=== PATIENT | female | born 1940 | race African-American/Black ===

== ENCOUNTER 2017-11-12 07:30 | Day surgery (SDC) | payer MEDICARE ==
[2017-11-09 08:33] VITALS: BMI 24.7
[2017-11-12 08:30] LABS: #Eosinphils 0.2 thou/uL (0.0-0.7); #Lymphocytes 1.7 thou/uL (1.20-3.40); #Monocytes 0.5 thou/uL (0.11-0.59); #Neutrophils 4.3 thou/uL (1.40-6.50); %Basophils 0.7 % (0.0-1.0); %Eosinophils 2.4 % (0.0-10.0); %Lymphocytes 25.6 % (21.0-51.0); %Monocytes 7.7 % (0.0-10.0); %Neutrophils 63.6 % (42.0-75.0); Hemoglobin 12.6 g/dL (12.0-16.0); Mean Corpuscular HGB CONC 30.7 g/dL (32.0-36.0); Mean Corpuscular Volume 78.2 fl (81.0-99.0); Mean Platelet Volume 9.8 fL (7.4-10.4); Platelet Count 195 thou/uL (130-400); RBC Distribution Width 13.4 % (11.5-14.5); Red Blood Cell (RBC) Count 5.24 mill/uL (4.20-5.40); White Blood Cell (WBC) Count 6.7 thou/uL (4.8-10.8)
[2017-11-12 08:49] LABS: Anion Gap 13 mmol/L (10-20); BUN (Urea Nitrogen) 30 mg/dL (9.8-20.1); Calc. Creatinine Clearance 48 mL/min (70-130); Calcium 9.8 mg/dL (7.8-10.44); Carbon Dioxide 24 mmol/L (23-31); Chloride 105 mmol/L (98-107); Estimated GFR-MDRD 57; Glucose 191 mg/dL (83-110); Potassium 3.7 mmol/L (3.5-5.1); Sodium 138 mmol/L (136-145)
[2017-11-12 09:24] LABS: INR-International Normal Ratio 1.1; PTT 35.9 SEC (22.9-36.1); Prothrombin Time 14.4 SEC (12.0-14.7)
[2017-11-12] MEDS ORDERED: Gentamicin 80 MG/2 ML VIAL ONE (10:32)
[2017-11-12] MEDS ORDERED: CEFAZOLIN/Water 2 GM/20 ML SYRINGE ONE (10:32)
[2017-11-12] MEDS ORDERED: CEFAZOLIN 1 GM VIAL ONE (10:32)
[2017-11-12] MEDS ORDERED: Diprivan 20 ML ONE (11:16)
[2017-11-12] MEDS ORDERED: Lidocaine 1% PF 5 ML VIAL ONE (13:35)
--- NOTE | 2017-11-12 15:04 | RAD ---
CHEST 1 VIEW: HISTORY: Pacemaker placement. COMPARISON: None. FINDINGS: A three lead cardiac device is present. No pneumothorax. Mild pulmonary venous congestion. Cardiac silhouette is upper limits of normal. IMPRESSION: 1. No pneumothorax. 2. Mild pulmonary venous congestion. 3. Blunting left lateral costophrenic sulcus may be sequelae of small effusion. POS: [facility]
== END 2017-11-12 16:20 | disposition home or self-care (01) ==
LOC: CCL 07:30
PROVIDERS: ATTEND Internal Medicine Cardiovascular Disease
PROC: 0JH609Z Insertion of Cardiac Resynchronization Defibrillator Pulse Generator into Chest Subcutaneous Tissue and Fascia, Open Approach (ICD-10-PCS; principal; 2017-11-12)
PROC: 02HN0KZ Insertion of Defibrillator Lead into Pericardium, Open Approach (ICD-10-PCS; 2017-11-12)
DX: I50.22 Chronic systolic (congestive) heart failure (principal); I42.8 Other cardiomyopathies; I44.7 Left bundle-branch block, unspecified; Z79.899 Other long term (current) drug therapy
CPT/HCPCS: 33208; 33225; 36005; 71045; 75820; 80048; 85025; 85610; 85730; C1882; C1898 ×2; C1900; J0690; J1580; J2704; J3490

== ENCOUNTER 2017-12-14 13:33 | Inpatient (IN) | payer MEDICARE ==
[2017-12-14 14:25] LABS: #Eosinphils 0.1 thou/uL (0.0-0.7); #Lymphocytes 1.3 thou/uL (1.20-3.40); #Monocytes 0.4 thou/uL (0.11-0.59); #Neutrophils 6.3 thou/uL (1.40-6.50); %Basophils 0.3 % (0.0-1.0); %Eosinophils 1.4 % (0.0-10.0); %Lymphocytes 15.5 % (21.0-51.0); %Monocytes 4.6 % (0.0-10.0); %Neutrophils 78.2 % (42.0-75.0); Hemoglobin 11.6 g/dL (12.0-16.0); Mean Corpuscular HGB CONC 30.6 g/dL (32.0-36.0); Mean Corpuscular Volume 78.5 fl (81.0-99.0); Mean Platelet Volume 10.4 fL (7.4-10.4); Platelet Count 171 thou/uL (130-400); RBC Distribution Width 13.5 % (11.5-14.5); Red Blood Cell (RBC) Count 4.84 mill/uL (4.20-5.40); White Blood Cell (WBC) Count 8.1 thou/uL (4.8-10.8)
[2017-12-14 14:48] LABS: ALT (SGPT) 14 U/L (8-55); AST (SGOT) 16 U/L (5-34); Alkaline Phosphatase 82 U/L (40-150); Anion Gap 10 mmol/L (10-20); BUN (Urea Nitrogen) 27 mg/dL (9.8-20.1); Bilirubin, Total 0.5 mg/dL (0.2-1.2); Calc. Creatinine Clearance 0 mL/min (70-130); Calcium 9.8 mg/dL (7.8-10.44); Carbon Dioxide 27 mmol/L (23-31); Chloride 104 mmol/L (98-107); Estimated GFR-MDRD 64; Glucose 208 mg/dL (83-110); Sodium 137 mmol/L (136-145)
[2017-12-14] MEDS ORDERED: hydrALAZINE 20 MG/ML VIAL ONE (15:25)
[2017-12-14 15:37] LABS: INR-International Normal Ratio 1.1
[2017-12-14 15:38] LABS: PTT 34.6 SEC (22.9-36.1)
[2017-12-14 15:44] LABS: CKMB 2.9 ng/mL (0-6.6); Troponin I Less than 0.010 ng/mL (< 0.028)
--- NOTE | 2017-12-14 16:10 | CT ---
NONCONTRAST HEAD CT: 12/14/17 HISTORY: Headache. Sudden onset of left jaw pain. COMPARISON: None. TECHNIQUE: Noncontrast head CT is performed from skull base to skull vertex. No parenchymal hemorrhage. No extra-axial hematoma. No midline shift. Basilar cisterns are patent. White matter hypodensities are presumed to be due to chronic small vesse l ischemic change. Cortical mcguire-white matter differentiation is preserved. The ventricles and sulci are patent and symmetric. The calvarium is intact. Adequate aeration of the sinuses and mastoid air cells. Cavernous carotid atherosclerosis is noted. Remote lacunar infarct in the left subinsular white matter. IMPRESSION: No acute intracranial process. POS: [facility]
--- NOTE | 2017-12-14 16:14 | CT ---
CT ARTERIOGRAM CHEST WITH IV CONTRAST AND 3D MIP IMAGING CT ARTERIOGRAM ABDOMEN WITH IV CONTRAST AND 3D MIP IMAGING 12/14/17 HISTORY: Chest pain. Abdomen pain. Back pain. FINDINGS: There is good contrast opacification of the pulmonary arteries and the aorta. Normal branching of the great vessels from the aortic arch is apparent. There is calcification within the arterial structure s. Mild atelectasis is present at the lung bases. No pneumothorax or pleural fluid. Cysts arise from the cortex of the left kidney. A large complex predominantly cystic mass centered at the pancreatic body and tail contains a dystrop hic calcification. On today's exam, it measures 6.9 cm length x 5.9 cm width x 5.6 cm depth. This is slightly smaller than on the previous exam. Nonspecific lymph nodes are scattered about the retroper itoneum. Abdominal aorta is of normal caliber. No fluid is apparent within the retroperitoneum. Mesen teric arteries are widely patent. IMPRESSION: 1. No CT evidence of pulmonary embolus or acute aortic abnormality. 2. Atherosclerosis. 3. Complex cystic mass of the pancreas is slightly smaller than on the previous exam. POS: [facility]
--- NOTE | 2017-12-14 16:18 | RAD ---
CHEST 1 VIEW: Date: 12/14/17 HISTORY: Chest pain. Headache. COMPARISON: 11/12/17. FINDINGS: Cardiac silhouette is magnified and enlarged. Pulmonary vasculature is more engorged than on the prev ious study. Mediastinum is midline with aortic calcification. There is a multilead left subclavian ca rdiac electronic device. No lobar consolidation or evidence of pneumothorax. rolling machine tender leads ov erlie the chest. IMPRESSION: 1. Mild pulmonary vascular congestion. 2. Atherosclerosis. POS: [facility]
[2017-12-14] MEDS ORDERED: ISOVUE-370 76%-LOCM 1 ML ONE (17:21)
[2017-12-14] MEDS ORDERED: Acetaminophen 500 MG TAB ONE (17:49)
[2017-12-14 17:56] LABS: Bilirubin Negative (Negative); Blood, Urine Negative (Negative); Clarity CLEAR (Clear); Glucose, Urine (Dipstick) Negative (Negative); Leukocyte Negative (Negative); Nitrite Negative (Negative); Protein, Urine (Dipstick) Negative (Neg-Trace); Specific Gravity, Urine 1.024 (1.002-1.036); Urobilinogen 0.2 mg/dL (0.2-1.0); pH, Urine 7.5 (5.0-9.0)
[2017-12-14] MEDS ORDERED: niCARdipine 20MG In NaCl 20 MG/200 ML BAG ONE (18:15)
[2017-12-14 19:48] LABS: Troponin I 0.014 ng/mL (< 0.028)
[2017-12-14] MEDS ORDERED: Ondansetron ODT 4 MG TAB SL PRN (21:21)
[2017-12-14] MEDS ORDERED: Ondansetron HCl/PF 4 MG/2 ML Vial IVP PRN (21:21)
[2017-12-14] MEDS ORDERED: niCARdipine HCl 25 MG in Sodium Chloride 0.9% 250 ML 240 ML IVPB SCH (21:30)
[2017-12-14] MEDS ORDERED: HumaLOG 300 UNITS/3 ML VIAL SC PRN (22:28)
[2017-12-14 22:34] LABS: Troponin I 0.016 ng/mL (< 0.028)
[2017-12-14] MEDS ORDERED: Dextrose 50% Abboject 50 ML SYRINGE IVP PRN (22:38)
[2017-12-14] MEDS ORDERED: Dextrose 5% in Water 1,000 ML IV PRN (22:38)
[2017-12-14 22:52] VITALS: BMI 25.7
[2017-12-14] MEDS ORDERED: Brimonidine Tartrate 0.2% Ophth Soln 5 ml Bottle EA EYE SCH (23:15)
[2017-12-14] MEDS ORDERED: Carvedilol 25 MG TAB PO SCH (23:15)
[2017-12-14] MEDS ORDERED: hydrALAZINE 25 MG TAB PO SCH (23:15)
[2017-12-14] MEDS: HumaLOG 300 UNITS/3 ML VIAL SC PRN (23:42)
--- NOTE | 2017-12-15 00:23 | HP ---
DATE OF ADMISSION: 12/14/2017 CHIEF COMPLAINT: Headache and elevated blood pressure. HISTORY OF PRESENT ILLNESS: This is a 77-year-old female patient with a history of hypertension, hyperlipidemia, cardiomyopathy with decreased ejection fraction, diet-controlled type 2 diabetes, glaucoma, who presented to the emergency department today with increasing headache and increasing blood pressure over the past week. She was recently seen in my office on 12/04/2017 with a blood pressure under good control with a reading of 124/80. She states that over the past week, she has had increased blood pressure and headache. She denies chest pain, shortness of breath, or palpitations. Denies any falls or head trauma. Due to her blood pressure, not getting better at home, so she presented to the emergency department, she was found to have blood pressure as high as 215/100 in the ED, she failed to respond to oral medications in the ED and then was started on a Cardene drip, which slowly brought her blood pressure down to 130s to 140s. Her heart rate initially was elevated in the 90s to 100s and is now back down to 80. Her headache had improved from 9-10/10, down to 1/ 10 as well. She is now being admitted for further evaluation and treatment. In the ED, she did not have elevated troponins, so her CT of the brain was normal. She had no other etiology of her high blood pressure at this time. PAST MEDICAL HISTORY: Hypertension; hyperlipidemia; fibrocystic breast disease ; type 2 diabetes, diet controlled; glaucoma; cardiomyopathy with decreased ejection fraction; history of a pancreatic mass, which was found to be a benign cyst. PAST SURGICAL HISTORY: Breast biopsy in 1977, removal of breast cyst in 2007; pacemaker placement in 10/2017; EGD with biopsy and pancreatic biopsy in 2016; colonoscopy with biopsy in 2016. SOCIAL HISTORY: She is . No smoking, no alcohol. FAMILY HISTORY: Father with a stroke. Siblings with coronary artery disease, type 2 diabetes, hypertension, heart disease. ALLERGIES: No known drug allergies. MEDICATIONS: Iron daily, vitamin D3 of 2000 units daily, hydralazine 50 mg t.i.d., losartan/hydrochlorothiazide 100/25 mg 1 daily, aspirin 81 mg daily, simvastatin 20 mg daily, brimonidine eyedrops, timolol eyedrops, latanoprost eyedrops, Norvasc 10 mg daily, carvedilol 6.25 mg b.i.d., Protonix p.r.n., loratadine 10 mg p.r.n. REVIEW OF SYSTEMS: As per the history of present illness. General: She denies any recent fevers, chills, or recent illness. HEENT: She admits to some blurred vision, admit her blood pressure was high. No ringing in her ears , no hearing loss. Cardiac: She denies chest pain, shortness of breath, or palpitations. Pulmonary: Denies cough or hemoptysis. Gastrointestinal: She did have some nausea and vomiting at home prior to the emergency room visit. No diarrhea. Genitourinary: No history of urinary tract infections recently. No dysuria or hematuria. Neurologic: No weakness, seizures, or syncope. PHYSICAL EXAMINATION: VITAL SIGNS: She is afebrile, heart rate 83, respirations 23, blood pressure 162/64, pulse ox 98% on room air. GENERAL: She is awake and alert, in no acute distress. Speech is clear. Mucosa is moist. NECK: Supple. No JVD, adenopathy, or bruits. HEART: Regular rate and rhythm with 2/6 systolic ejection murmur. LUNGS: Clear. ABDOMEN: Soft. No masses. No hepatosplenomegaly. EXTREMITIES: No clubbing, cyanosis, or edema. 2+ peripheral pulses bilaterally. NEUROLOGIC: Cranial nerves II through XII are grossly intact. Speech is clear and fluent. Strength is 5/5 bilaterally in upper and lower extremities. Sensation is intact bilaterally. LABORATORY AND DIAGNOSTIC DATA: White blood cell count 8.1, hemoglobin and hematocrit 11.6 and 38, platelets 171. PT and PTT were normal. Sodium 137, potassium 4.0, chloride 104, CO2 of 27, BUN and creatinine 27 and 1.01, serum glucose elevated at 208. AST and ALT are normal. CPK was normal. Troponin I negative x2. BNP was normal at 84.4. Brain CT was negative. Chest x-ray showed no active disease. CT dissection scan was negative. ASSESSMENT AND PLAN: 1. This is a 77-year-old female patient with known cardiomyopathy, status post pacemaker placement, known hypertension, hyperlipidemia, now with hypertensive emergency. I agree with admission to the ICU while she was on Cardene drip. Hopefully, we will switch her to oral meds and transfer to the floor tomorrow. Agree with continuing rule out myocardial infarction protocol. 2. Hypertension. We will continue medicines. We will increase her carvedilol. May add oral calcium-channel andre as well. 3. Coronary artery disease is stable. She had a recent echocardiogram by Dr. Brunson, electrophysiology. Consider cardiology evaluation if she has not improved tomorrow. 4. Hyperlipidemia. We will continue statin therapy. 5. Known type 2 diabetes with hyperglycemia. We will check Accu-Cheks and insulin sliding scale. MTDD
[2017-12-15 01:26] LABS: Troponin I 0.016 ng/mL (< 0.028)
[2017-12-15] MEDS: HumaLOG 300 UNITS/3 ML VIAL SC PRN ×3 (06:23→17:42)
[2017-12-15] MEDS: Brimonidine Tartrate 0.2% Ophth Soln 5 ml Bottle EA EYE SCH ×2 (08:08→21:26)
[2017-12-15] MEDS: hydrALAZINE 25 MG TAB PO SCH ×2 (08:09→21:26)
[2017-12-15] MEDS: Ferrous Sulfate 325 MG TAB PO SCH (08:09)
[2017-12-15] MEDS: Losartan/Hydrochlorothiazide 100 mg/25 mg Tablet PO SCH (08:09)
[2017-12-15] MEDS: Carvedilol 25 MG TAB PO SCH ×2 (08:10→16:17)
[2017-12-15] MEDS: Aspirin 81 mg Enteric Coated Tablet PO SCH (08:10)
[2017-12-15] MEDS: Amlodipine 5 MG TAB PO SCH (08:10)
[2017-12-15] MEDS: Ascorbic Acid 500 mg Chewable Tablet PO SCH (08:10)
[2017-12-15] MEDS: Atorvastatin Calcium 10 MG TAB PO SCH (08:10)
[2017-12-15] MEDS ORDERED: Aspirin 325 MG TAB PO SCH (09:00)
[2017-12-15] MEDS: Latanoprost 0.005% Ophth Soln 2.5 ml Bottle EA EYE SCH (09:05)
--- NOTE | 2017-12-15 10:39 | ULT ---
RENAL SONOGRAM: HISTORY: Hypertension. FINDINGS: The right kidney is 10.6 cm. No hydronephrosis. Echogenicity was reported by the sonographic techno logist. No stones were apparent, however, on recent CT scan. The left kidney is 10.1 cm and contains cysts measuring up to 3.8 cm. Urinary bladder is incompletel y distended. IMPRESSION: 1. No evidence of urinary tract obstruction. 2. Left renal cysts. POS: [facility]
--- NOTE | 2017-12-15 12:10 | PRG ---
DATE OF SERVICE: 12/15/2017 SUBJECTIVE: The patient is feeling much better, denies headache, denies chest pain, shortness of nilda ath. Her blood pressure decreased last night, she was able to come off of the Cardene drip about 2:0 0 a.m. She feels much better now that her blood pressure is better controlled. Denies any chest arianna n, shortness of breath, denies nausea and vomiting. She has not been out of bed as of yet, but is an xious to eat and start moving. OBJECTIVE: VITAL SIGNS: Temperature 98.2, pulse of 64, respirations 20, blood pressure 165/68-165/78. GENERAL: She is awake and alert. Speech is clear and fluent. No word finding difficulties. NECK: Supple, no JVD, adenopathy or bruits. HEART: Regular rate and rhythm. LUNGS: Clear. No edema. EXTREMITIES: With full range of motion. NEUROLOGIC: No weakness, numbness, or tingling. LABORATORY DATA: Troponin I's have been negative x4. Accu-Chek of 184 this morning. ASSESSMENT AND PLAN: 1. This is a 77-year-old female patient with a history of coronary artery disease, hypertension, hyp erlipidemia, admitted with hypertensive emergency. She improved with IV Cardizem. She is now been a ble to switch to oral medications and is feeling much better now. We will transfer her to telemetry for close monitoring. 2. Hypertension. I will continue oral medications. Consider adding her back on nifedipine as neede d. 3. Coronary artery disease is stable. 4. Type 2 diabetes. We will continue insulin sliding scale. 5. We will check renal ultrasound to rule out renal artery stenosis causing the sudden hypertensive emergency and possible home in the next day or two.
[2017-12-15] MEDS: cloNIDine 0.1 MG TAB PO PRN (17:43)
[2017-12-15] MEDS ORDERED: Lorazepam 2 MG/ML VIAL SLOW IVP PRN (20:24)
[2017-12-16] MEDS: cloNIDine 0.1 MG TAB PO PRN (05:12)
[2017-12-16 05:37] LABS: #Eosinphils 0.3 thou/uL (0.0-0.7); #Monocytes 0.6 thou/uL (0.11-0.59); #Neutrophils 5.2 thou/uL (1.40-6.50); %Basophils 0.2 % (0.0-1.0); %Eosinophils 3.3 % (0.0-10.0); %Lymphocytes 24.7 % (21.0-51.0); %Monocytes 7.6 % (0.0-10.0); %Neutrophils 64.2 % (42.0-75.0); Mean Corpuscular HGB CONC 31.4 g/dL (32.0-36.0); Mean Corpuscular Hemoglobin 24.3 pg (27.0-31.0); Mean Corpuscular Volume 77.4 fl (81.0-99.0); Mean Platelet Volume 10.5 fL (7.4-10.4); Platelet Count 178 thou/uL (130-400); RBC Distribution Width 13.5 % (11.5-14.5); Red Blood Cell (RBC) Count 4.96 mill/uL (4.20-5.40); White Blood Cell (WBC) Count 8.1 thou/uL (4.8-10.8)
[2017-12-16 05:54] LABS: Anion Gap 12 mmol/L (10-20); BUN (Urea Nitrogen) 24 mg/dL (9.8-20.1); Calc. Creatinine Clearance 54 mL/min (70-130); Calcium 9.5 mg/dL (7.8-10.44); Carbon Dioxide 27 mmol/L (23-31); Chloride 103 mmol/L (98-107); Estimated GFR-MDRD 63; Glucose 196 mg/dL (83-110); Potassium 3.6 mmol/L (3.5-5.1); Sodium 138 mmol/L (136-145)
[2017-12-16] MEDS: Losartan/Hydrochlorothiazide 100 mg/25 mg Tablet PO SCH (09:25)
[2017-12-16] MEDS: Carvedilol 25 MG TAB PO SCH (09:26)
[2017-12-16] MEDS: hydrALAZINE 25 MG TAB PO SCH (09:26)
[2017-12-16] MEDS: Atorvastatin Calcium 10 MG TAB PO SCH (09:26)
[2017-12-16] MEDS: Aspirin 81 mg Enteric Coated Tablet PO SCH (09:26)
[2017-12-16] MEDS: Ferrous Sulfate 325 MG TAB PO SCH (09:26)
[2017-12-16] MEDS: Amlodipine 5 MG TAB PO SCH (09:27)
[2017-12-16] MEDS: Brimonidine Tartrate 0.2% Ophth Soln 5 ml Bottle EA EYE SCH (09:27)
[2017-12-16] MEDS: Latanoprost 0.005% Ophth Soln 2.5 ml Bottle EA EYE SCH (09:27)
[2017-12-16] MEDS: Ascorbic Acid 500 mg Chewable Tablet PO SCH (09:27)
--- NOTE | 2017-12-16 11:41 | DIS ---
DATE OF ADMISSION: 12/14/2017 DATE OF DISCHARGE: 12/16/2017 ADMISSION DIAGNOSIS: Hypertensive emergency. DISCHARGE DIAGNOSIS: Hypertension, improved. OTHER DIAGNOSES: Coronary artery disease, type 2 diabetes, hypertension, hyperlipidemia and early de mentia. CONSULTATIONS: Dr. Crockett for Critical Care. PROCEDURES PERFORMED: IV Cardene drip, ICU monitoring and telemetry monitoring. HOSPITAL COURSE: This is a 77-year-old female patient with a history of hypertension, hyperlipidemia , cardiomyopathy with decreased ejection fraction and diet controlled diabetes who presented to the [facility] with slowly increasing blood pressure at home and increasing headache. She was s een in my office on 12/04/2017 with normal blood pressure. Following that, her blood pressures hugo nued to rise. In the Emergency Department, she was found to have a blood pressure over 215/100. She failed to respond to oral medications in the EGD and was started on a Cardene drip, which controlled her blood pressure. She was in the ICU over that first night. She was able to be weaned off of the Cardene drip and has been managed on oral medications since that time. She eventually ruled out for an NV. Her CT brain, CT dissection scan and renal ultrasound have all been stable. No etiology for her rise in blood pressure. She is back to her baseline. Her blood pressure remained stable and re abhay for discharge home. DISCHARGE PHYSICAL EXAMINATION: VITAL SIGNS: Temperature 98.0, pulse 72, respirations 18, blood pressure 145/65 and pulse ox is 94% on room air. GENERAL: She is awake and alert. Speech is clear. She is moving in the room without difficulty. NECK: Supple. No bruits. HEART: Regular rate and rhythm. LUNGS: Clear. ABDOMEN: Soft. EXTREMITIES: With no edema. 2+ peripheral pulses. She moves all extremities. LABORATORY AND IMAGING DATA: Again, she ruled out for an NV with negative cardiac enzymes. White bl ood cell count 8.1 thousand, hemoglobin and hematocrit 12 and 38.4, platelets of 178. Sodium 138, po tassium 3.6, chloride 103, CO2 of 27, BUN and creatinine 24 and 1.03 with a GFR of 63, serum glucose of 196. Again, reviewed renal ultrasound, CT dissection protocol, brain CT and chest x-ray have all been stable. DISCHARGE MEDICATIONS: Include Norvasc 5 mg daily, aspirin 81 mg daily, Lipitor 10 mg daily, Alphaga n eyedrops, Coreg 25 mg b.i.d., vitamin D3, iron sulfate daily, Hyzaar 100/25 daily, Apresoline 50 mg b.i.d. and Protonix 40 mg daily. FOLLOWUP INSTRUCTIONS: The patient to follow up in my office this next week to monitor her blood pre ssure.
[2017-12-16 19:05] VITALS: BP 163/61; TEMP 97.9
--- NOTE | 2017-12-22 17:46 | EKG ---
Test Reason : CP Blood Pressure : / mmHG Vent. Rate : 067 BPM Atrial Rate : 067 BPM P-R Int : 124 ms QRS Dur : 128 ms QT Int : 462 ms P-R-T Axes : 047 218 068 degrees QTc Int : 488 ms Atrial-sensed ventricular-paced rhythm Abnormal ECG Confirmed by ROMI TYLER, FRANTZ ([id number]), editor greeting card MONA JAUREGUI ([id number]) on 12/22/2017 5:45:52 PM Referred By: Confirmed By:FRANTZ LLANOS MD
== END 2017-12-16 12:28 | disposition home or self-care (01) | DRG 305 ==
LOC: ERS 13:33 → CCU 18:05 → 2NO 21:50
PROVIDERS: ADMIT Family Medicine; ATTEND Family Medicine
DX: I16.1 Hypertensive emergency (principal); E11.65 Type 2 diabetes mellitus with hyperglycemia; I42.9 Cardiomyopathy, unspecified; I25.10 Atherosclerotic heart disease of native coronary artery without angina pectoris; I10 Essential (primary) hypertension; E78.5 Hyperlipidemia, unspecified; F03.90 Unspecified dementia, unspecified severity, without behavioral disturbance, psychotic disturbance, mood disturbance, and anxiety; H40.9 Unspecified glaucoma; Z95.0 Presence of cardiac pacemaker
CPT/HCPCS: 36415; 36416; 70450; 71045; 71275; 76770; 80048; 80053; 81003; 82550; 82553; 83690; 83880; 84484; 85025; 85610; 85730; 93005; 96361; 96365; 96366; 96375; J0360; J1610

== ENCOUNTER 2018-12-04 17:53 | Inpatient (IN) | payer MEDICARE ==
[2018-12-04 18:49] LABS: #Eosinphils 0.1 thou/uL (0.0-0.7); #Lymphocytes 2.1 thou/uL (1.20-3.40); #Monocytes 0.7 thou/uL (0.11-0.59); #Neutrophils 5.7 thou/uL (1.40-6.50); %Basophils 0.3 % (0.0-1.0); %Eosinophils 1.6 % (0.0-10.0); %Lymphocytes 24.6 % (21.0-51.0); %Monocytes 7.6 % (0.0-10.0); Hemoglobin 11.8 g/dL (12.0-16.0); Mean Corpuscular HGB CONC 31.1 g/dL (32.0-36.0); Mean Corpuscular Hemoglobin 23.9 pg (27.0-31.0); Mean Corpuscular Volume 77.1 fL (78.0-98.0); Mean Platelet Volume 9.8 fL (7.4-10.4); Platelet Count 216 thou/uL (130-400); RBC Distribution Width 14.5 % (11.5-14.5); Red Blood Cell (RBC) Count 4.93 mill/uL (4.20-5.40); White Blood Cell (WBC) Count 8.6 thou/uL (4.8-10.8)
--- NOTE | 2018-12-04 18:51 | RAD ---
AP VIEW CHEST: 12/04/18 HISTORY: Chest pain. AP view chest is obtained on 12/04/18. Comparison made to previous exam from 12/14/17. AP view chest demonstrates a dual lead intracardiac pacing device. Mild pulmonary vascular congestion seen. Calcification of the aorta is seen. No evidence of effusions, pneumonia, or pneumothorax seen. IMPRESSION: Unremarkable AP view chest. POS: [facility]
[2018-12-04 19:11] LABS: ALT (SGPT) 16 U/L (8-55); AST (SGOT) 26 U/L (5-34); Albumin 3.8 g/dL (3.4-4.8); Alkaline Phosphatase 81 U/L (40-150); Anion Gap 12 mmol/L (10-20); BUN (Urea Nitrogen) 21 mg/dL (9.8-20.1); Bilirubin, Total 0.3 mg/dL (0.2-1.2); Calc. Creatinine Clearance 0 mL/min (70-130); Calcium 9.8 mg/dL (7.8-10.44); Carbon Dioxide 24 mmol/L (23-31); Chloride 109 mmol/L (98-107); Estimated GFR-MDRD 48; Globulin 3.3 g/dL (2.4-3.5); Glucose 126 mg/dL (83-110); Potassium 4.1 mmol/L (3.5-5.1); Protein, Total 7.1 g/dL (6.0-8.3); Sodium 141 mmol/L (136-145)
[2018-12-04 22:21] LABS: Troponin I 0.018 ng/mL (< 0.028)
[2018-12-04] MEDS ORDERED: Acetaminophen 500 MG TAB ONE (22:28)
[2018-12-05 01:49] LABS: Troponin I Less than 0.010 ng/mL (< 0.028)
[2018-12-05 04:10] VITALS: BMI 25.0
[2018-12-05] MEDS ORDERED: hydrALAZINE 20 MG/ML VIAL SLOW IVP PRN (07:48)
[2018-12-05] MEDS ORDERED: Nitroglycerin 0.4 MG TAB (25 Tab Bottle) SL PRN (07:51)
[2018-12-05] MEDS: Losartan 25 MG TAB PO SCH (08:20)
[2018-12-05] MEDS: Carvedilol 25 MG TAB PO SCH ×2 (08:21→17:16)
[2018-12-05] MEDS: hydrALAZINE 25 MG TAB PO SCH ×2 (08:22→20:24)
[2018-12-05] MEDS: Aspirin 81 mg Enteric Coated Tablet PO SCH (08:22)
[2018-12-05] MEDS: Ferrous Sulfate 325 MG TAB PO SCH (08:22)
[2018-12-05] MEDS: Latanoprost 0.005% Ophth Soln 2.5 ml Bottle EA EYE SCH (08:22)
[2018-12-05] MEDS: Ascorbic Acid 500 mg Chewable Tablet PO SCH (08:22)
[2018-12-05] MEDS ORDERED: Prevnar 13-Val Conj/PF 0.5 ML SYRINGE IM ONE (09:00)
[2018-12-05] MEDS ORDERED: Amlodipine 5 MG TAB PO SCH (09:00)
[2018-12-05] MEDS: Brimonidine Tartrate 0.2% Ophth Soln 5 ml Bottle EA EYE SCH ×2 (09:46→21:49)
[2018-12-05] MEDS ORDERED: Simvastatin 20 MG TAB PO SCH (21:00)
[2018-12-05] MEDS ORDERED: Atorvastatin Calcium 10 MG TAB PO SCH (21:00)
--- NOTE | 2018-12-06 04:34 | HP ---
CHIEF COMPLAINT: Chest pain. HISTORY OF PRESENT ILLNESS: This is a 78-year-old female patient with a history of hypertension, hyperlipidemia, dementia, type 2 diabetes, arrhythmia status post pacemaker placement, who presented to the emergency department with onset of chest pain. With discussion with the son, she has also been more confused. Her has been hospitalized as she has been home with family. She has been more resistant for treatment. She has not been taking her medicines for the past few days. She also locked her family and refusing home health nursing to come by. The family brought her to the emergency department since she has not been compliant with the treatment and has not been taking her medicines. In the emergency department, she was found to have a severely elevated blood pressure as well as onset of her chest pain. She is now being admitted for further evaluation and treatment. PAST MEDICAL HISTORY: Hypertension, hyperlipidemia, type 2 diabetes, glaucoma, history of cardiomyopathy with decreased ejection fraction, history of benign pancreatic mass. PAST SURGICAL HISTORY: Breast biopsy in 1977, removal of breast cyst in 2007, pacemaker placement in October 2017, EGD with biopsy, pancreatic biopsy in 2016, colonoscopy with biopsy in 2016. SOCIAL HISTORY: She is . No smoking. No alcohol. FAMILY HISTORY: Father with stroke. Siblings with coronary artery disease, type 2 diabetes, hypertension and heart disease. ALLERGIES: NO KNOWN DRUG ALLERGIES. MEDICATIONS: Include: 1. Norvasc 5 mg daily. 2. Vitamin C once daily. 3. Aspirin 81 mg daily. 4. Lipitor 10 mg daily. 5. Carvedilol 25 mg b.i.d. 6. Ferrous sulfate 325 daily. 7. Hydralazine 50 mg b.i.d. 8. Cozaar 100 mg daily. 9. Protonix 40 mg daily. 10. Xalatan 1 drop daily to each eye. 11. Alphagan 1 drop each eye b.i.d. REVIEW OF SYSTEMS: As per the history of present illness. GENERAL: She denies any recent fevers or recent illness. HEENT: Denies headache, visual or hearing changes. CARDIAC: She complains of chest pain and chest wall tenderness on the left side over her pacemaker No shortness of breath. No palpitations. PULMONARY: Denies cough or hemoptysis. GI: She denies nausea, vomiting, abdominal pain, melena, or hematochezia. : No history of dysuria or hematuria. No recent urinary tract infections. NEUROLOGIC: No weakness, seizures or syncope. She has had memory loss. PHYSICAL EXAMINATION: VITAL SIGNS: Temperature 98.1, pulse of 76, respirations 18. Blood pressure on admission 196/92, down to 152/72. Pulse ox is 99% on room air. GENERAL: Her speech is clear. She is awake, alert, and oriented to person and place only. HEENT: Mucosa is moist. NECK: Supple. No JVD, adenopathy, or bruits. CHEST: Left upper chest wall tenderness over pacemaker HEART: Regular rate and rhythm with 2/6 systolic ejection murmur. LUNGS: Clear bilaterally. ABDOMEN: Soft. EXTREMITIES: With no edema. 2+ peripheral pulses bilaterally. LABORATORY DATA: White blood cell count 8600, hemoglobin and hematocrit 11.8 and 38.0, platelets of 216. Sodium 141, potassium 4.1, chloride 109, CO2 of 24, BUN and creatinine 21 and 1.3 with a GFR 48. Serum glucose of 126. Troponin I 0.016, 0.018, and less than 0.01. Liver enzymes are normal. BNP 44. Chest x-ray showed no active disease. ASSESSMENT AND PLAN: This is a 78-year-old female patient with history of cardiomyopathy, hypertension, hyperlipidemia, now with onset of chest pain and hypertensive urgency. 1. Chest pain. Agree with rule out myocardial infarction protocol. We will consult Dr. Sher for evaluation. Seems like her pain is more musculoskeletal in origin as it is reproducible with tenderness around the pacemaker. 2. Hypertensive urgency. We will restart her medications and monitor closely. We will continue p.r.n. IV hydralazine for breakthrough hypertension. 3. Hyperlipidemia. We will continue her medications. 4. Type 2 diabetes. We will continue insulin sliding scale. 5. Dementia. The patient is no longer safe to be home, especially home alone with her becoming more ill. I will consult Case Management for placement issues as far as her son is in agreement with halfway facility placement. We will have renal case managerbiofuels product development manager for her placement issues. Job ID: [id number] [facility]
[2018-12-06] MEDS ORDERED: Lorazepam 2 MG/ML VIAL SLOW IVP SCH (04:45)
--- NOTE | 2018-12-06 06:47 | CON ---
DATE OF CONSULTATION: 12/05/2018 HISTORY OF PRESENT ILLNESS: This is a 78-year-old female with a past medical history of Alzheimer dementia, coronary artery disease, hypertension, and congestive heart failure with reduced ejection fraction, who presents to the ER via EMS for chest pain. She has dementia at baseline and only alert to herself which does make the history difficult to obtain. In the ER, she complained of chest pain, that she said was sudden, at rest, without radiation, without nausea or vomiting, without shortness of breath, without diaphoresis. She was subsequently admitted for this chest pain as well as for hypertensive urgency. When I saw her this afternoon, she reported that she does have chest pain. She cannot tell me how frequent, but did say that it is sharp and left sided. She again told me that it was while at rest without radiation, and when she takes her medications it goes away. Of note, she was prescribed nitroglycerin. She also said that at times her heart races really fast, but she could not say how often or when it occurs. She also endorsed some lightheadedness but could not say how often or when it occurs. Of note, after review of her cardiology records, she is a patient of Dr. Sher, she had a cardiac cath in 2014 after going to his clinic and found to have a left frontal branch block. The results of that cath showed an ejection fraction of 45%, and 25% of occlusion of LAD, and 25% occlusion of the circumflex artery. She also had an echo at that time, which showed an EF of 45% to 50%, mildly impaired LV systolic function, LV mildly dilated, moderate mitral regurgitation, and mild tricuspid regurgitation. Of note, in the ER for her elevated blood pressure. she got labetalol 10 mg x2 and she also got Tylenol. PAST MEDICAL HISTORY: 1. Diabetes mellitus, type 2. 2. Hypertension. 3. Alzheimer dementia. 4. Coronary artery disease. 5. Heart failure with reduced ejection fraction. 6. Hypertension. 7. Hyperlipidemia. 8. Vitamin B deficiency. PAST SURGICAL HISTORY: Biventricular pacemaker placed on 11/12/2017. ALLERGIES: NONE. FAMILY HISTORY: Parents have hypertension. Sister has coronary artery disease with stent placement. Second sister has heart failure. SOCIAL HISTORY: She used to smoke half pack per day. She quit 25 years ago. MEDICATIONS: 1. Amlodipine 5 mg p.o. q.a.m. as scheduled. 2. Aspirin 81 mg p.o. q.a.m. 3. Atorvastatin 10 mg p.o. at bedtime as scheduled. 4. Carvedilol 25 mg p.o. b.i.d. with meal as scheduled. 5. Vitamin D 2000 units p.o. q.a.m. as scheduled. 6. Vitamin C 500 mg p.o. q.a.m. as scheduled. 7. Ferrous sulfate 325 mg p.o. BID 8. Hydralazine 50 mg p.o. b.i.d. scheduled. 9. Latanoprost one drop each eye daily scheduled. 10. Losartan 100 mg daily scheduled. 11. Nitroglycerin 0.4 mg sublingual p.r.n. chest pain. 12. Pantoprazole 40 mg p.o. q.a.m. REVIEW OF SYSTEMS: GENERAL: Denied weight loss or fevers. CARDIOVASCULAR: Denied diaphoresis, syncope, or orthopnea. Endorsed palpitation and chest pain, but not currently, but having occurred over the last 2 weeks. RESPIRATORY: Denied shortness of breath or dyspnea. GI: Denied nausea, vomiting, or diarrhea. NEUROLOGIC: Endorsed lightheadedness, headache occasionally. DERMATOLOGIC: Denied rashes or skin lesions. PHYSICAL EXAMINATION: VITAL SIGNS: Blood pressure 157/70, however initial blood pressures in the ER were 200s/100; heart rate of 78, respiratory rate 18, saturating 100% on room air, and temperature 97.6. GENERAL: Alert and oriented to self. She thought she was in [place] and thought the year was fall 2017, otherwise well appearing in no acute distress. CARDIOVASCULAR: Regular rate and rhythm. No murmurs, rubs, or gallops. Normal S1 and S2. RESPIRATORY: Mild crackles heard in the right lung base, improved after several breaths. Otherwise clear to auscultation. No wheezing. ABDOMEN: Abdomen is soft, nontender to palpation. Normal bowel sounds. MUSCULOSKELETAL: No edema. Pulses, 2+ bilaterally. DIAGNOSTIC DATA: EKG, atrial-sensed ventricularly paced EKG, no signs of acute ischemia. LABORATORY DATA: Troponin 0.016, 0.010, 0.010. BMP showed a BUN of 21 and creatinine 1.3. Glucose of 126. Her BNP was 44. Her CBC showed hemoglobin of 11.8. Chest x-ray showed pulmonary vascular congestion. Cath in 2015 showed EF 45%, 25% occlusion of the LAD and the circumflex artery. Echo in 2015 showed EF 45% to 50%, LV mildly dilated, moderate mitral regurgitation, mild tricuspid regurgitation. ASSESSMENT AND PLAN: This is a 78-year-old female with past medical history of dementia; coronary artery disease, not requiring stent placement; hypertension; congestive heart failure; diabetes; admitted for atypical chest pain and hypertensive urgency. # Atypical chest pain. -The patient has known coronary artery disease, and her last cath was in 2014 showing 25% occlusion of the left anterior descending artery and the circumflex. It is unlikely that her coronary artery disease has advanced too significantly over the past 3 years, and given this atypical presentation of her chest pain with her negative troponin and no acute ischemia on EKG, we would not recommend a stress test inpatient. HAS-BLED score of 4 based on her age and her risk factors; however, due to very atypical presentation in her history and she has negative troponin and again her EKG did not show any acute signs of ischemia and also given her other comorbidities, we would not recommend an inpatient stress test at this time. # Hypertensive urgency. Given the patient is currently on losartan 100 mg daily, amlodipine 5 mg daily, carvedilol 25 mg b.i.d., her most recent blood pressure is lowered from admission. It was 157/70. We would recommend adding spironolactone to her regimen. # Heart failure with reduced ejection fraction. Her last echo was 2014, showed an ejection fraction of 45% to 50%. We would recommend repeating an echo as outpatient and also would recommend adding back spironolactone to her regimen. #Hyperlipidemia. We would recommend getting a lipid panel. On assesseing her risk, the patient would likely need a high-intensity statin. We would recommend increasing atorvastatin to 40 mg based on her arteriosclerotic heart disease risk. Dr. Abreu has seen the patient and agrees with my assessment and plan. Job ID: [id number] [facility]
--- NOTE | 2018-12-06 08:27 | PRG ---
DATE OF SERVICE: 12/06/2018 SUBJECTIVE: The patient states that her chest pain has improved. She is ambulating in the valerio. Denies shortness of breath and states that she is having a good appetite. She continues to be confused and states that her has had several meetings this morning. She is easily redirected, so that the fact that she is in the hospital. Denies pain. Denies nausea and vomiting. OBJECTIVE: VITAL SIGNS: Temperature 97.7, pulse is 74, respirations 20, blood pressure 122/62, pulse ox 96% on room air. GENERAL: She is awake and alert. No acute distress. Speech is clear. NECK: Supple. HEART: Regular rate and rhythm. Chest wall continues to be tender. LUNGS: Clear bilaterally. No wheeze, rales, or rhonchi. EXTREMITIES: With no edema. LABORATORY DATA: Reviewed. She ruled out for an SD. Accu-Cheks 165, 210, 132, 140. Chest x-ray shows no active disease. ASSESSMENT AND PLAN: This is a 78-year-old female patient with a history of coronary artery disease, type 2 diabetes, hypertension, hyperlipidemia, admitted with chest pain and hypertensive urgency. 1. The patient ruled out for myocardial infarction with normal cardiac enzymes. Cardiology evaluated the patient, so no need for further workup on her chest pain since it is atypical and likely more musculoskeletal due to her pacemaker. 2. Type 2 diabetes. We will continue her current treatment. 3. Hypertensive urgency is improved. We will continue her current therapy and monitor closely. 4. Dementia. The patient is not safe to be home alone. 5. Disposition: Case management continue to work on placement for her, especially since her is hospitalized and is not able to go home from the hospital. Job ID: [id number]
--- NOTE | 2018-12-06 08:40 | CON ---
DATE OF CONSULTATION: 12/05/2018 ADDENDUM: INDICATION FOR CONSULTATION: A 78-year-old female with a history of coronary artery disease, which has been nonocclusive by cardiac catheterization in 2015 with 25% right coronary stenosis, 25% left circumflex stenosis with decreasing left ventricular systolic function. She underwent a biventricular ICD in 2017. She has been living at home with her , who is now I believe has metastatic cancer, who is now likely in the hospital in the last several days. She has not been taking her medications. She is significantly confused. She has Alzheimer's. She does not want people taking care of her. She has not taken medicines appropriately, but has been having intermittent chest pain according to the records. She says she did have some pain last week. When you talk to her, she is very unreliable historian. At this time, she is very comfortable. She is actually visiting her 's room and sitting in the chair, talking to him very comfortably when I found her in order to do the history and physical. Otherwise, she has no complaints. She denied any shortness of breath. She had no lower extremity edema and she appears to be euvolemic. She did have an ejection fraction of 40% to 45% in 2017 and 45% to 50% also in the 2017 and a 50% ejection fraction in 2014. She had history of left bundle branch block prior to undergoing the biventricular AICD. She also has a history of hypertension, hyperlipidemia. She has been on cholesterol medications as well as medications for her blood pressure. She offers up no complaints at this time. Her cardiac enzymes are negative for myocardial infarction. EKG did not show any evidence of ischemia. Her creatinine was 1.3. Her blood pressure was elevated, certainly when she arrives in the 180s to 190 systolically. She has now had some improvement is 157/70. Otherwise, she appears to be stable at this time without any other complaints. PAST MEDICAL HISTORY: Please refer to the notes dictated by the resident. SOCIAL HISTORY: Please refer to the notes dictated by the resident. FAMILY HISTORY: Please refer to the notes dictated by the resident. REVIEW OF SYSTEMS: Please refer to the notes dictated by the resident. MEDICATIONS: Please refer to the notes dictated by the resident. ALLERGIES: PLEASE REFER TO THE NOTES DICTATED BY THE RESIDENT. I HAVE SEEN THE PATIENT ALSO AND WE HAVE DISCUSSED THE PATIENT AND I WOULD AGREE WITH THE ASSESSMENT AND PLAN. WE HAVE ALSO DISCUSSED THE PLAN OF ACTION IN THIS PATIENT. WE WILL OBTAIN ANOTHER ECHOCARDIOGRAM IF THIS HAS NOT BEEN RECENTLY PERFORMED IN THE OFFICE. THERE HAS BEEN SOME QUESTION ABOUT STRESS TESTING, BUT I WOULD NOT PROCEED WITH STRESS TESTING IN THIS LADY WHO HAS OBVIOUS ALZHEIMER'S DISEASE AND HAD A CARDIAC CATHETERIZATION JUST A COUPLE OF YEARS AGO WITH MILD CORONARY ARTERY DISEASE. WOULD NOT EXPECT THIS TO PROGRESS THAT QUICKLY. WE WILL CONTINUE TO FOLLOW HER. PHYSICAL EXAMINATION: GENERAL: Reveals an elderly, demented female. VITAL SIGNS: Blood pressure 157/70, heart rates in the 70s. She is afebrile. Respiratory rate is 20, O2 saturation is 100%, and also she appears to have normal sinus rhythm. HEENT: Shows the head to be normocephalic and atraumatic. Carotid pulses are present. I did not hear any bruits. Her chest was clear to auscultation. There were no rales, rhonchi, or wheezing. CARDIOVASCULAR: Reveals a regular rate and rhythm. There were no gross murmurs, heaves, thrills, bruits or rubs. ABDOMEN: Soft and nontender. Positive bowel sounds are present. EXTREMITIES: No clubbing, cyanosis, or edema. Pedal pulses are somewhat difficult to palpate, but the patient was sitting in the chair for most of the examination. NEUROLOGIC: She has obvious dementia. She is only oriented to herself. She really did not think she was even in the hospital, is uncertain as to why she is here when you question her again, but she seems to be comfortable as long as she is within the room with her . IMPRESSION: 1. History of coronary artery disease, which appears to be actually stable at this time. 2. History of cardiomyopathy and bundle-branch block, for which she underwent automatic implantable cardioverter-defibrillator implant. This appears to be also stable, does not know when it was last interrogated, but we can certainly ask them to interrogate her device. Does not appear to be having any abnormalities or any abnormal functions or problems at this time associated with the defibrillator. 3. Hypercholesterolemia. She will continue with her medications. 4. Type 2 diabetes. She is in the need to adjust her medications according to the friend, who was present and apparently she does not take her medications. Overall, looking at situation for her and for herself, most likely she would benefit from being having placement in the senior living facility, so that she can be watched more carefully and medications can be given on a routine basis from a cardiac standpoint, otherwise she appears to be stable at this time. Job ID: [id number]
[2018-12-06] MEDS ORDERED: Atorvastatin Calcium 10 MG TAB PO SCH (08:43)
[2018-12-06] MEDS ORDERED: Spironolactone 25 MG TAB PO SCH (08:45)
--- NOTE | 2018-12-06 09:00 | EKG ---
Test Reason : Blood Pressure : / mmHG Vent. Rate : 074 BPM Atrial Rate : 074 BPM P-R Int : 148 ms QRS Dur : 126 ms QT Int : 446 ms P-R-T Axes : 062 202 059 degrees QTc Int : 495 ms Electronic ventricular pacemaker , likely biventricular When compared with ECG of 04-DEC-2018 18:02, (Unconfirmed) Vent. rate has decreased BY [address] Staci CORNELIUS ([id number]) on 12/06/2018 8:59:37 AM [facility] Confirmed By:DR. Staci CORNELIUS
--- NOTE | 2018-12-06 09:05 | PDOC.CTH ---
Cardiology Progress Note - Subjective The pt seen and examined. No overnight events. No cardiac complaints. - Objective Vital Signs Temp Pulse Resp BP Pulse Ox 12/06/18 08:00 98.3 F 80 18 170/76 H 97 12/06/18 03:50 96 12/06/18 00:00 20 Weight 155 lb 8 oz 12/05/18 12/06/18 12/07/18 06:59 06:59 06:59 Intake Total 300 1230 Output Total 1300 600 Balance -1000 630 - Physical Examination General/Neuro: other: (confused) Neck: carotid US brisk Lungs: CTA Heart: RRR Abdomen: soft Extremities: other: (No edema) - Telemetry Telemetry Rhythm: SR - Labs Result Diagrams: 12/04/18 18:38 12/04/18 18:38 Troponin/CKMB Troponin I Less than 0.010 ng/mL (< 0.028) 12/05/18 00:58 - Assessment/Plan 1. Mild CAD - stable with Coreg 6.25mg BID, Lipitor 40mg qd, and ASA 81mg qd 2. CMY with BiV AICD placement - On BBlocker, but not LUCILA/ARB 2/2 AGUILA 3. HTN - change Norvasc to Nifedipine 90mg qd; cont. to monitort 4. Hyperlipidemia - on Statin 5. DM type 2 - managed by PCP 6. Alzheimer's disease - MAR reviewed Pt. seen and eval. by me. She is still very confused due to alzheimers. The cardiac status is stable.I will sign off. she should follow up in the office in 1-[address] Sher. Review of Systems - Review of Systems Constitutional: reports: no symptoms reported EENTM: reports: no symptoms reported Respiratory: reports: no symptoms reported Cardiac (ROS): reports: no symptoms reported ABD/GI: reports: no symptoms reported : reports: no symptoms reported Musculoskeletal: reports: no symptoms reported
[2018-12-06] MEDS: NIFEdipine XL 90 MG TAB PO SCH (09:48)
[2018-12-06] MEDS: Losartan 25 MG TAB PO SCH (09:48)
[2018-12-06] MEDS: Carvedilol 25 MG TAB PO SCH ×2 (09:49→17:42)
[2018-12-06] MEDS: Ferrous Sulfate 325 MG TAB PO SCH (09:49)
[2018-12-06] MEDS: hydrALAZINE 25 MG TAB PO SCH ×2 (09:49→20:44)
[2018-12-06] MEDS: Aspirin 81 mg Enteric Coated Tablet PO SCH (09:50)
[2018-12-06] MEDS: Latanoprost 0.005% Ophth Soln 2.5 ml Bottle EA EYE SCH (09:51)
[2018-12-06] MEDS: Ascorbic Acid 500 mg Chewable Tablet PO SCH (09:51)
[2018-12-06] MEDS: Brimonidine Tartrate 0.2% Ophth Soln 5 ml Bottle EA EYE SCH ×2 (09:51→20:56)
[2018-12-07] MEDS: Ascorbic Acid 500 mg Chewable Tablet PO SCH (08:19)
[2018-12-07] MEDS: hydrALAZINE 25 MG TAB PO SCH ×2 (08:19→20:27)
[2018-12-07] MEDS: Ferrous Sulfate 325 MG TAB PO SCH (08:19)
[2018-12-07] MEDS: Aspirin 81 mg Enteric Coated Tablet PO SCH (08:20)
[2018-12-07] MEDS: Carvedilol 25 MG TAB PO SCH ×2 (08:20→17:12)
[2018-12-07] MEDS: Latanoprost 0.005% Ophth Soln 2.5 ml Bottle EA EYE SCH (08:21)
[2018-12-07] MEDS: Brimonidine Tartrate 0.2% Ophth Soln 5 ml Bottle EA EYE SCH ×2 (08:21→20:28)
[2018-12-07] MEDS: NIFEdipine XL 90 MG TAB PO SCH (09:10)
--- NOTE | 2018-12-07 12:30 | PRG ---
DATE OF SERVICE: 12/07/2018 PRIMARY CARE PHYSICIAN: Desean Moore, SUBJECTIVE: Today, the patient has no complaint, wanting to go home. Her evaluation for chest pain has come up negative. OBJECTIVE: VITAL SIGNS: Currently, she is afebrile, pulse in the 70s, BP 125/64, saturating 95% on room air. GENERAL: She is awake, alert, but confused, demented, very pleasant. LUNGS: Clear to auscultation bilaterally. HEART: S1, S2 with no rubs, murmurs, or gallops. ABDOMEN: Soft, nontender, nondistended. EXTREMITIES: Show good palpable pulses in all 4 extremities. NEUROLOGIC: There is no weakness or sensory deficits. Cognition is impaired. Memory is impaired. 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 Per notes from Dr. Moore, the patient is awaiting for help with assistance as her is admitted as well due to problems with his renal failure and his metastatic prostate cancer. LABORATORY DATA: She has no recent lab work other than a glucose of 245. ASSESSMENT: Chest pain, is ruled out, has dementia, and we are awaiting placement disposition from help with the family, evidently is on their way here to also aid with that. Job ID: [id number]
[2018-12-07] MEDS ORDERED: traZODone HCl 50 MG TAB PO SCH (20:00)
[2018-12-07] MEDS: Atorvastatin Calcium 40 MG TAB PO SCH (20:27)
[2018-12-08] MEDS: NIFEdipine XL 90 MG TAB PO SCH (08:43)
[2018-12-08] MEDS: Latanoprost 0.005% Ophth Soln 2.5 ml Bottle EA EYE SCH (08:45)
[2018-12-08] MEDS: hydrALAZINE 25 MG TAB PO SCH ×3 (08:46→22:56)
[2018-12-08] MEDS: Ascorbic Acid 500 mg Chewable Tablet PO SCH (08:46)
[2018-12-08] MEDS: Carvedilol 25 MG TAB PO SCH ×2 (08:47→16:19)
[2018-12-08] MEDS: Ferrous Sulfate 325 MG TAB PO SCH (08:47)
[2018-12-08] MEDS: Aspirin 81 mg Enteric Coated Tablet PO SCH (08:47)
[2018-12-08] MEDS: Brimonidine Tartrate 0.2% Ophth Soln 5 ml Bottle EA EYE SCH ×3 (08:51→22:56)
--- NOTE | 2018-12-08 14:13 | PRG ---
DATE OF SERVICE: 12/08/2018 SUBJECTIVE: Last night, Ms. Butt had an episode of wandering and agitation, and had to have some trazodone to calm her down, which it did. Otherwise today, she has been calm. OBJECTIVE: VITAL SIGNS: Stable. Afebrile. Exam is unchanged. LUNGS: Clear. HEART: S1, S2. ABDOMEN: Soft, nontender. NEUROLOGIC: She is still pleasantly confused, but she does not think she is confused. LABORATORY DATA: There are no labs. ASSESSMENT: Her is still in the ICU and so disposition for her is dependent on the disposition of him. Dr. Moore will be back to see him tomorrow. Job ID: [id number]
[2018-12-08] MEDS ORDERED: Acetaminophen 500 MG TAB PO PRN (17:17)
[2018-12-08] MEDS: Atorvastatin Calcium 40 MG TAB PO SCH ×2 (21:38→22:56)
[2018-12-09] MEDS: Brimonidine Tartrate 0.2% Ophth Soln 5 ml Bottle EA EYE SCH ×2 (08:55→20:22)
[2018-12-09] MEDS: Latanoprost 0.005% Ophth Soln 2.5 ml Bottle EA EYE SCH (08:55)
[2018-12-09] MEDS: Aspirin 81 mg Enteric Coated Tablet PO SCH (08:56)
[2018-12-09] MEDS: hydrALAZINE 25 MG TAB PO SCH ×2 (08:56→20:20)
[2018-12-09] MEDS: NIFEdipine XL 90 MG TAB PO SCH (08:56)
[2018-12-09] MEDS: Carvedilol 25 MG TAB PO SCH ×2 (08:57→17:35)
[2018-12-09] MEDS: Ascorbic Acid 500 mg Chewable Tablet PO SCH (08:57)
[2018-12-09] MEDS: Ferrous Sulfate 325 MG TAB PO SCH (09:04)
--- NOTE | 2018-12-09 13:35 | PRG ---
DATE OF SERVICE: 12/09/2018 SUBJECTIVE: The patient is essentially stable, had an uneventful evening. OBJECTIVE: VITAL SIGNS: BP is 150s/70s, pulse 93, saturating 92% on room air. Exam is essentially unchanged. LUNGS: Clear auscultation bilaterally. HEART: S1 and S2. NEUROLOGIC: Her confusion remains the same. It is unclear that she can go home by herself and her is still in ICU. The family is coming in from out of town to help with decisions on discharge. Dr. Moore will be back tomorrow. Hopefully, the family would be available for that point in time. Job ID: [id number]
--- NOTE | 2018-12-09 15:40 | PQF ---
DATE: 12-09-18 ATTN: DR. ANNIE OWUSU Please exercise your independent, professional judgment in responding to the clarification form. Clinical indicators are provided on the bottom of this form for your review Please check appropriate box(s): [ ] Encephalopathy: Type: [ ] Acute [ ] Subacute [ ] Chronic Etiology: [ ] Hypertensive [ ] Metabolic [ ] Toxic [ ] in the setting of underlying dementia [ ] Other (please specify) [ ] Transient Alteration of Awareness [ xx ] Other diagnosis __alzheimers dementia [ ] Unable to determine In addition, please specify: Present on Admission (POA): [ xx ] Yes [ ] No [ ] Unable to determine For continuity of documentation, please document condition throughout progress notes and discharge summary. Thank You. CLINICAL INDICATORS - SIGNS / SYMPTOMS / LABS H&P: HX DEMENTIA, WITH DISCUSSION WITH THE SON, SHE HAS ALSO BEEN MORE CONFUSED, SHE HAS BEEN MORE RESISTANT FOR TREATMENT, SHE HAS NOT BEEN TAKING HER MEDICINES FOR THE PAST FEW DAYS, SHE ALSO LOCKER HER FAMILY AND REFUSING HOME HEALTH NURSING TO COME BY. RISK FACTORS: H&P: HX OF HTN, HYPERLIPIDEMIA, DEMENTIA, DM 2, MORE CONFUSED, ALZHEIMER'S DEMENTIA, CAD, CHF TREATMENTS: H&P: DEMENTIA. CONSULT CASE MANAGEMENT MAR: OLYA This form is maintained as a part of the permanent medical record) 2014 [employer]. All Rights Reserved SANDRA [email or web address] Office: [phone] JOEL
[2018-12-09] MEDS ORDERED: traZODone HCl 50 MG TAB PO SCH (20:00)
[2018-12-09] MEDS: Atorvastatin Calcium 40 MG TAB PO SCH (20:20)
[2018-12-10] MEDS: Brimonidine Tartrate 0.2% Ophth Soln 5 ml Bottle EA EYE SCH (08:50)
[2018-12-10] MEDS: NIFEdipine XL 90 MG TAB PO SCH (08:51)
[2018-12-10] MEDS: Ascorbic Acid 500 mg Chewable Tablet PO SCH (08:51)
[2018-12-10] MEDS: Aspirin 81 mg Enteric Coated Tablet PO SCH (08:52)
[2018-12-10] MEDS: hydrALAZINE 25 MG TAB PO SCH ×2 (08:52→21:30)
[2018-12-10] MEDS: Carvedilol 25 MG TAB PO SCH ×2 (08:52→17:41)
[2018-12-10] MEDS: Ferrous Sulfate 325 MG TAB PO SCH (08:52)
[2018-12-10] MEDS: Latanoprost 0.005% Ophth Soln 2.5 ml Bottle EA EYE SCH (08:52)
--- NOTE | 2018-12-10 09:05 | PRG ---
DATE OF SERVICE: 12/10/2018 SUBJECTIVE: The patient denies complaints. She is ambulating in the hallway without difficulty. She states that she feels like the sitters are harassing her as she is concerned about her . OBJECTIVE: VITAL SIGNS: Temperature 97.9, pulse 78, respirations 16, blood pressure 146/72, pulse oximetry is 96% on room air. GENERAL: She is awake and alert, in no acute distress. Speech is clear. NECK: Supple. HEART: Regular rate and rhythm. LUNGS: Clear. EXTREMITIES: No edema. She is oriented to person only. LABORATORY DATA: Reviewed. Accu-Cheks of 165, 125, 200, 143, 197. ASSESSMENT/PLAN: This is a 78-year-old female patient with a history of dementia, admitted with chest pain. Rule out NH and hypertensive urgency. Her chest pain has resolved. Hypertension remained stable, now that she is monitored and ensuring she is taking her medications on a regular basis. 1. Hypertension. We will continue current therapy. 2. Type 2 diabetes, stable. 3. Dementia. We will continue medications. She continues to be unsafe to be at home alone. 4. Disposition: Case management working on her placement, continuing to discuss with other family about living options. Job ID: [id number]
[2018-12-10] MEDS ORDERED: traZODone HCl 50 MG TAB PO PRN (19:01)
[2018-12-10] MEDS: Atorvastatin Calcium 40 MG TAB PO SCH (21:30)
[2018-12-11] MEDS: Brimonidine Tartrate 0.2% Ophth Soln 5 ml Bottle EA EYE SCH ×3 (01:46→20:09)
--- NOTE | 2018-12-11 07:33 | PRG ---
DATE OF SERVICE: 12/11/2018 SUBJECTIVE: No change in her status. She continues to walk in the hallways with assistance. She has a sitter with her 24 hours. She continued to be confused, but at her baseline. OBJECTIVE: VITAL SIGNS: Temperature 97.6, pulse of 82, respirations 16 to 18, blood pressure 131/69, and pulse ox 98% on room air. GENERAL: She is awake and alert, in no acute distress. HEART: Regular rate and rhythm. LUNGS: Clear. EXTREMITIES: With no edema. LABORATORY DATA: No labs to review. ASSESSMENT AND PLAN: This is a 78-year-old female patient with history of dementia, hypertension, type 2 diabetes, who was admitted with chest pain and hypertensive urgency. She did rule out for a myocardial infarction. Her blood pressure is now stable. Awaiting placement. 1. Hypertension. We will continue to monitor and continue her oral medications. 2. Type 2 diabetes. We will check Accu-Cheks periodically. 3. Dementia, that is back at her baseline. She continues to be unsafe to be home alone. Her is sick in the hospital and unable to care for her. 4. Disposition: Case management continue to work on placement. Job ID: [id number]
[2018-12-11] MEDS: Ascorbic Acid 500 mg Chewable Tablet PO SCH (08:29)
[2018-12-11] MEDS: Ferrous Sulfate 325 MG TAB PO SCH (08:29)
[2018-12-11] MEDS: hydrALAZINE 25 MG TAB PO SCH ×3 (08:30→21:54)
[2018-12-11] MEDS: NIFEdipine XL 90 MG TAB PO SCH (08:30)
[2018-12-11] MEDS: Carvedilol 25 MG TAB PO SCH ×2 (08:30→16:26)
[2018-12-11] MEDS: Aspirin 81 mg Enteric Coated Tablet PO SCH (08:30)
[2018-12-11] MEDS: Latanoprost 0.005% Ophth Soln 2.5 ml Bottle EA EYE SCH (08:31)
[2018-12-11] MEDS: Atorvastatin Calcium 40 MG TAB PO SCH ×2 (20:08→21:55)
[2018-12-12 07:26] VITALS: BP 124/70; TEMP 97.5
[2018-12-12] MEDS: NIFEdipine XL 90 MG TAB PO SCH (07:56)
[2018-12-12] MEDS: Ascorbic Acid 500 mg Chewable Tablet PO SCH (07:57)
[2018-12-12] MEDS: Carvedilol 25 MG TAB PO SCH (07:57)
[2018-12-12] MEDS: Aspirin 81 mg Enteric Coated Tablet PO SCH (07:57)
[2018-12-12] MEDS: Brimonidine Tartrate 0.2% Ophth Soln 5 ml Bottle EA EYE SCH (07:57)
[2018-12-12] MEDS: Ferrous Sulfate 325 MG TAB PO SCH (07:57)
[2018-12-12] MEDS: hydrALAZINE 25 MG TAB PO SCH (07:57)
[2018-12-12] MEDS: Latanoprost 0.005% Ophth Soln 2.5 ml Bottle EA EYE SCH (07:58)
--- NOTE | 2018-12-12 08:53 | DIS ---
DATE OF ADMISSION: 12/05/2018 DATE OF DISCHARGE: 12/12/2018 ADMISSION DIAGNOSES: 1. Chest pain. 2. Hypertensive urgency. DISCHARGE DIAGNOSES: 1. Chest pain, ruled out, hypertensive, controlled. 2. Dementia. 3. Cardiomyopathy. 4. Coronary artery disease. 5. Hypertension. 6. Hyperlipidemia. HOSPITAL COURSE: This is a 78-year-old female patient with a history of dementia, hypertension, coronary artery disease, and type 2 diabetes, who presented to emergency department after stopping her medicines for about a week. She was becoming more and more confused since her went into the hospital and was not there to care for her. Family was attempting to care for her, but she was refusing their care, refusing any assistance, locked her family and home health nurses out of the house and stopped all of her medicines. In the emergency department, she came in for chest pain and her blood pressure over 200 systolic. She was admitted that time under rule out UT protocol. She eventually ruled out for an UT with negative cardiac enzymes, normal chest x-ray, normal EKG. BNP was only 44. She was seen by Cardiology for evaluation. They felt like her pain was more musculoskeletal around the area of her pacemaker. She was stable for discharge once her blood pressure became more under control with monitoring and taking her medicines on a regular basis. Placement became an issue since her was in the hospital and the family was unable to take care of her. She has a son in [place] and arrangements were made for her to be transferred there to snf. She remained stable throughout the hospitalization. Again, her blood pressure was under control and she had no further episodes of chest pain. DISCHARGE PHYSICAL EXAMINATION: VITAL SIGNS: Temperature 97.5, pulse of 81, respirations 19, blood pressure 124/70, and pulse ox is 96% on room air. GENERAL: She is awake and alert, in no acute distress. Speech is clear. NECK: Supple. HEART: Regular rate and rhythm. LUNGS: Clear. EXTREMITIES: With no edema. DISCHARGE LABS: Accu-Cheks of 115, 191, 208, and 171. Chest x-ray shows no active disease. EKG was normal sinus rhythm. DISCHARGE MEDICATIONS: Include: 1. Tylenol p.r.n. 2. Vitamin C 500 mg daily. 3. Aspirin 81 mg daily. 4. Lipitor 40 mg daily. 5. Alphagan 1 drop b.i.d. 6. Coreg 25 mg b.i.d. 7. Vitamin D3 of 2000 units daily. 8. Iron sulfate 325 daily. 9. Hydralazine 50 mg b.i.d. 10. Xalatan 1 drop daily. 11. Procardia XL 90 mg daily. 12. Protonix 40 mg daily. 13. Trazodone 50 mg at bedtime p.r.n. sleep. FOLLOWUP INSTRUCTIONS: The patient to follow up in my office after her snf stay and follow up with the physician at the snf. Job ID: [id number]
--- NOTE | 2018-12-16 10:51 | PQF ---
[employer] Typesetter Apprentice Crystal Reports Winform ViewerTANJATALLONDON ANNIE HAJI DO [id number] [facility] [id number] CLINICAL DOCUMENTATION CLARIFICATION FORM: POST DISCHARGE Addendum to original discharge summary date: ____ Late entry note date: __ Please exercise your independent, professional judgment in responding to the clarification form. Clinical indicators are provided on the bottom of this form for your review Please check appropriate box(s): HEART FAILURE: A. TYPE: [ ] Systolic / HFrEF [ ] Diastolic / HFpEF [ ] Combined Systolic / Diastolic B. ACUITY [ ] Acute [ ] Acute on Chronic [ ] Chronic [ ] Other diagnosis [ ] Unable to determine In addition, please specify: Present on Admission (POA): [ ] Yes [ ] No [ ] Unable to determine For continuity of documentation, please document condition throughout progress notes and discharge summary. Thank You. CLINICAL INDICATORS - SIGNS / SYMPTOMS / LABS HEART FAILURE WITH REDUCED EJECTION FRACTURE- CONSULT 12/05 BNP 44- D/S RISKS: Hypertension- H&P, D/S, CONSULTS AND ALL PROGRESS NOTES TREATMENTS: ON HOME CARVEDILOL- H&P [employer] Typesetter Apprentice [employer] Winform Viewer(This form is maintained as a part of the permanent medical record) 2014 [employer]. All Rights Reserved [email or web address] [phone] MTDD
== END 2018-12-12 10:56 | DRG 305 ==
LOC: ERS 17:53 → 2NO 21:20 → OBSVTOIN 12-05 07:51 → T4-A 12-06 11:40
PROVIDERS: ADMIT Family Medicine; ATTEND Family Medicine
DX: I16.0 Hypertensive urgency (principal); I42.9 Cardiomyopathy, unspecified; E78.5 Hyperlipidemia, unspecified; E11.9 Type 2 diabetes mellitus without complications; H40.9 Unspecified glaucoma; G30.9 Alzheimer's disease, unspecified; F02.80 Dementia in other diseases classified elsewhere, unspecified severity, without behavioral disturbance, psychotic disturbance, mood disturbance, and anxiety; I25.10 Atherosclerotic heart disease of native coronary artery without angina pectoris; I11.0 Hypertensive heart disease with heart failure; I50.9 Heart failure, unspecified; E53.9 Vitamin B deficiency, unspecified; Z79.82 Long term (current) use of aspirin; Z95.810 Presence of automatic (implantable) cardiac defibrillator; Z82.49 Family history of ischemic heart disease and other diseases of the circulatory system; Z83.3 Family history of diabetes mellitus; Z82.3 Family history of stroke
CPT/HCPCS: 36415; 36416; 71045; 80053; 83880; 84484; 85025; 93005; 93010; 96374; 96376; J2060; J3490

== ENCOUNTER 2019-10-23 19:52 | Observation (INO) | payer MEDICARE, MEDICAID ==
[2019-10-23] MEDS ORDERED: Nitroglycerin 2% Ointment 1 INCH/1 GM Packet ONE (20:08)
[2019-10-23] MEDS ORDERED: Morphine 4 MG/ML VIAL ONE (20:17)
--- NOTE | 2019-10-23 20:33 | RAD ---
PORTABLE UPRIGHT FRONTAL CHEST RADIOGRAPH: 10/23/19 COMPARISON: 12/04/18 HISTORY: Intermittent chest pain. FINDINGS: Stable multilead transvenous pacing device. No pneumothorax, pleural fluid, focal consolidation, or a lveolar edema. IMPRESSION: No acute findings. POS: COLTON
[2019-10-23 20:38] LABS: #Basophils 0.1 thou/uL (0.0-0.2); #Eosinphils 0.3 thou/uL (0.0-0.7); #Lymphocytes 2.6 thou/uL (1.20-3.40); #Monocytes 0.8 thou/uL (0.11-0.59); #Neutrophils 7.8 thou/uL (1.40-6.50); %Basophils 0.8 % (0.0-1.0); %Eosinophils 2.7 % (0.0-10.0); %Lymphocytes 22.3 % (21.0-51.0); %Monocytes 6.5 % (0.0-10.0); %Neutrophils 67.7 % (42.0-75.0); Hemoglobin 12.8 g/dL (12.0-16.0); Mean Corpuscular HGB CONC 33.6 g/dL (32.0-36.0); Mean Corpuscular Hemoglobin 26.1 pg (27.0-31.0); Mean Corpuscular Volume 77.6 fL (78.0-98.0); Mean Platelet Volume 9.4 fL (7.4-10.4); Platelet Count 199 thou/uL (130-400); RBC Distribution Width 13.4 % (11.5-14.5); Red Blood Cell (RBC) Count 4.89 mill/uL (4.20-5.40); White Blood Cell (WBC) Count 11.6 thou/uL (4.8-10.8)
[2019-10-23 20:57] LABS: ALT (SGPT) 22 U/L (8-55); AST (SGOT) 22 U/L (5-34); Albumin 4.3 g/dL (3.4-4.8); Alkaline Phosphatase 92 U/L (40-110); Anion Gap 16 mmol/L (10-20); BUN (Urea Nitrogen) 14 mg/dL (9.8-20.1); Bilirubin, Total 0.5 mg/dL (0.2-1.2); Calc. Creatinine Clearance 0 mL/min (70-130); Calcium 9.7 mg/dL (7.8-10.44); Carbon Dioxide 26 mmol/L (23-31); Chloride 103 mmol/L (98-107); Estimated GFR-MDRD 61; Globulin 3.1 g/dL (2.4-3.5); Glucose 135 mg/dL (83-110); Lipase 78 U/L (8-78); Magnesium 1.8 mg/dL (1.6-2.6); Potassium 3.6 mmol/L (3.5-5.1); Protein, Total 7.4 g/dL (6.0-8.3); Sodium 141 mmol/L (136-145)
--- NOTE | 2019-10-23 22:30 | CT ---
CT ANGIOGRAM THORAX WITH IV CONTRAST AND 3D RECONSTRUCTIONS: 10/23/19 HISTORY: Chest pain with exertion. COMPARISON: CTA chest on 12/14/17. FINDINGS: No filling defects are seen in the pulmonary arteries to suggest a pulmonary embolus. Vascular calcifications are again seen in the coronary arteries as well as involving the thoracic aor ta. The thorax aorta remains normal in caliber without evidence of an aortic dissection. A triple lead left subclavian cardiac pacemaking device is again noted in place. The thyroid gland is heterogeneous in appearance with suggestion of nodules in each lobe of the thyro id gland. However, this is not well evaluated on this exam. Nonemergent thyroid ultrasound is recomme nded. There is dependent atelectasis bilaterally. No pulmonary nodule, mass, or pleural effusion is seen in the lungs bilaterally. There is no evidence of mediastinal or hilar lymphadenopathy. There is partial visualization of a hypodense cystic lesion superior pole left kidney stable when com pared to the prior study likely representing a cyst. Degenerative changes are again seen in the thoracic spine. There has been no interval change from the prior CT angiogram of the chest. Prior study included CTA of the abdomen which demonstrated a comple x cystic mass in the pancreas. IMPRESSION: 1. No CT evidence of a pulmonary embolus. 2. Heterogeneity of the thyroid gland with suggestion of nodules in each lobe of the thyroid gla nd. Nonemergent thyroid ultrasound is recommended. POS: NEREYDA
[2019-10-23 23:52] LABS: Troponin I 0.024 ng/mL (< 0.028)
[2019-10-24 00:10] VITALS: BMI 22.1
[2019-10-24] MEDS ORDERED: Aspirin Chewable 81 MG TAB PO SCH (00:30)
[2019-10-24 02:59] LABS: Troponin I Less than 0.010 ng/mL (< 0.028)
[2019-10-24 07:01] LABS: #Basophils 0.1 thou/uL (0.0-0.2); #Eosinphils 0.3 thou/uL (0.0-0.7); #Monocytes 0.6 thou/uL (0.11-0.59); #Neutrophils 7.8 thou/uL (1.40-6.50); %Basophils 0.5 % (0.0-1.0); %Lymphocytes 18.5 % (21.0-51.0); %Monocytes 5.5 % (0.0-10.0); %Neutrophils 72.4 % (42.0-75.0); Hemoglobin 11.9 g/dL (12.0-16.0); Mean Corpuscular HGB CONC 31.9 g/dL (32.0-36.0); Mean Corpuscular Hemoglobin 24.6 pg (27.0-31.0); Mean Platelet Volume 9.3 fL (7.4-10.4); Platelet Count 205 thou/uL (130-400); RBC Distribution Width 13.5 % (11.5-14.5); Red Blood Cell (RBC) Count 4.83 mill/uL (4.20-5.40); White Blood Cell (WBC) Count 10.8 thou/uL (4.8-10.8)
[2019-10-24] MEDS ORDERED: Calcium Carbonate 500 MG ChewTAB PO PRN (07:57)
[2019-10-24] MEDS ORDERED: Nitroglycerin 0.4 MG TAB (25 Tab Bottle) PO PRN (07:57)
[2019-10-24] MEDS ORDERED: Acetaminophen 325 MG TAB PO PRN (07:57)
[2019-10-24] MEDS ORDERED: Senokot S 8.6-50 MG TAB PO PRN (07:57)
[2019-10-24] MEDS ORDERED: traZODone HCl 50 MG TAB PO PRN (08:01)
[2019-10-24] MEDS ORDERED: cloNIDine 0.1 MG TAB PO PRN (08:02)
[2019-10-24] MEDS ORDERED: Brimonidine Tartrate 0.2% Ophth Soln 5 ml Bottle EA EYE SCH (09:00)
[2019-10-24] MEDS ORDERED: NIFEdipine XL 90 MG TAB PO SCH (09:00)
[2019-10-24] MEDS ORDERED: Aspirin 81 mg Enteric Coated Tablet PO SCH (09:00)
[2019-10-24] MEDS ORDERED: Donepezil HCl 10 MG TAB PO SCH (09:00)
[2019-10-24] MEDS ORDERED: hydrALAZINE 25 MG TAB PO SCH (09:00)
[2019-10-24] MEDS ORDERED: Latanoprost 0.005% Ophth Soln 2.5 ml Bottle EA EYE SCH (09:00)
[2019-10-24] MEDS ORDERED: ADENOSINE 60 MG/20 ML VIAL ONE (11:49)
--- NOTE | 2019-10-24 13:36 | NM ---
EXAM: Nuclear medicine cardiac perfusion examination with ejection fraction HISTORY: Chest pain TECHNIQUE: Rest images: 9.8 mCi technetium 99m sestamibi Stress images: 30.2 mCi of technetium 9M sestamibi; Adenosine COMPARISON: None FINDINGS: Tomographic images: No fixed or reversible perfusion defects. Gated images: Normal wall motion and ejection fraction of 63%. EDV: 80 mL LHR: 0.3 TID: 1.2 IMPRESSION: No evidence of ischemia
[2019-10-24 15:37] VITALS: BP 151/67
[2019-10-24 15:42] VITALS: TEMP 97.6
--- NOTE | 2019-10-24 16:23 | SS ---
DATE OF ADMISSION: 10/24/2019 DATE OF DISCHARGE: 10/24/2019 CHIEF COMPLAINT: Chest discomfort. PRIMARY CARE PHYSICIAN: Dr. Moore. HISTORY OF PRESENT ILLNESS: The patient is a 79-year-old female with coronary artery disease, diabetes mellitus type 2, hypertension, and hyperlipidemia, presented to the emergency room with chest discomfort. Please note that the patient is a poor historian. The chest discomfort was substernal, [id number] in intensity without any aggravating or relieving factor. At times, the pain was worse with deep breathing. She denies any associated fever, chills, nausea, vomiting, diaphoresis, syncope, cough, or palpitations. She denies recent immobilization or travel. In the emergency room, her initial vital signs showed temperature 97.9, respirations of 22, pulse rate of 90 with a blood pressure of 199/88. She received morphine with nitroglycerin patch. She received nitroglycerin sublingual by EMS as well. The chest discomfort did not significantly improve with nitroglycerin. PAST MEDICAL HISTORY: 1. Hypertension. 2. Hyperlipidemia. 3. Diabetes mellitus type. 4. History of benign pancreatic mass. 5. Coronary artery disease. Cardiac catheterization in 2014 showed 20% to 25% lesion in the LAD, with 20% to 25% lesion in the circumflex. ALLERGIES: THE PATIENT IS ALLERGIC TO PENICILLIN. CURRENT HOME MEDICATIONS: 1. Aricept 10 mg daily. 2. Lasix 20 mg daily. 3. Tylenol as needed. 4. Vitamin C 500 mg daily. 5. Aspirin 81 mg daily. 6. Lipitor 40 mg at bedtime. 7. Alphagan 0.2% eyedrops b.i.d. 8. Carvedilol 25 mg b.i.d. 9. Vitamin D3 2000 units daily. 10. Clonidine as needed. 11. Ferrous sulfate 325 mg daily. 12. Hydralazine 50 mg b.i.d. 13. Xalatan eye drops daily. 14. Procardia XL 90 mg daily. 15. Sublingual nitroglycerin as needed. 16. Protonix 40 mg daily. 17. Trazodone 50 mg at bedtime. SOCIAL HISTORY: The patient currently lives in assisted living. She makes her own decision with the help of her family. No current use of smoking, alcohol, or drug use. FAMILY HISTORY: Positive for CVA. REVIEW OF SYSTEMS: All other review of systems was reviewed and was found negative. PHYSICAL EXAMINATION: VITAL SIGNS: As discussed above. GENERAL: A 79-year-old female in no apparent distress. Denies any chest discomfort at this time. HEENT: Head, atraumatic and normocephalic. Sclerae anicteric. Moist mucous membranes. No oral lesion. NECK: Supple. No JVD. No carotid bruit. LUNGS: Clear to auscultation bilaterally. No wheezing, rales, or rhonchi. HEART: S1 and S2 present. Regular rate and rhythm. No rubs or gallops. ABDOMEN: Soft, nontender. Bowel sounds present. No rebound or guarding. EXTREMITIES: No edema or calf tenderness. NEUROLOGY: Grossly nonfocal. Moves all 4 extremities. PSYCHIATRY: Alert and awake. Pleasantly confused. SKIN: Warm and dry. LYMPH NODES: No palpable lymph nodes in the neck. VASCULAR: Peripheral vascular, radial pulses palpable bilaterally. MUSCULOSKELETAL: No joint swelling tenderness. LABORATORY DATA AND IMAGING STUDIES: EKG by my review showed paced rhythm. WBC 10.8 with hemoglobin 12.8. Platelet count of 205. D-dimer was 1.48. BUN of 14, creatinine of 1.06. LFTs in normal range. Troponins were negative. Sodium and potassium in normal range. Chest x-ray by my review was negative for infiltrate or edema. CT angiogram of the chest by my review was negative for DVT. It showed heterogenicity of the thyroid gland suggesting a thyroid nodule. Nonemergent thyroid ultrasound is recommended. IMPRESSION: 1. Chest discomfort. 2. Dementia. 3. Coronary artery disease with last cardiac catheterization in 2014. 4. Hypertension. 5. Hyperlipidemia. 6. Thyroid nodule. 7. Diabetes mellitus type 2, diet controlled. 8. Glaucoma. 9. Chronic kidney disease stage 2. HOSPITAL COURSE: The patient was monitored on the telemetry unit. A chest discomfort was probably due to hypertensive urgency. Due to history of coronary artery disease, she underwent a stress test that was negative for reversible ischemia. Ejection fraction on the stress test was 63% without any perfusion defects. She is chest pain free at this time. She will continue her home medication. Clonidine was added for systolic blood pressure more than 180. She was advised to follow up with Dr. Sher and Dr. Moore as scheduled. She will continue 81 mg aspirin. Plan was discussed with the patient and the family in detail, they stated understanding. Job ID: [id number]
[2019-10-24] MEDS ORDERED: Carvedilol 25 MG TAB PO SCH (17:00)
[2019-10-24] MEDS ORDERED: Atorvastatin Calcium 40 MG TAB PO SCH (21:00)
== END 2019-10-24 15:38 ==
LOC: ERS 19:52 → 2SW 10-24 00:03
PROVIDERS: ADMIT Internal Medicine; ATTEND Internal Medicine
DX: R07.89 Other chest pain (principal); I12.9 Hypertensive chronic kidney disease with stage 1 through stage 4 chronic kidney disease, or unspecified chronic kidney disease; E11.22 Type 2 diabetes mellitus with diabetic chronic kidney disease; N18.2 Chronic kidney disease, stage 2 (mild); I25.10 Atherosclerotic heart disease of native coronary artery without angina pectoris; E04.1 Nontoxic single thyroid nodule; E78.5 Hyperlipidemia, unspecified; F03.90 Unspecified dementia, unspecified severity, without behavioral disturbance, psychotic disturbance, mood disturbance, and anxiety; Z79.82 Long term (current) use of aspirin; Z79.899 Other long term (current) drug therapy; Z88.0 Allergy status to penicillin
CPT/HCPCS: 71045; 71275; 78452; 80053; 83690; 83735; 84484 ×2; 85025; 85379; 93017; 96374; 99285; A9500; 36415; G0378; J0153; J2270

== ENCOUNTER 2020-08-19 14:39 | Emergency (ER) | payer MEDICARE ==
--- NOTE | 2020-08-19 15:18 | RAD ---
EXAM: Single view of the chest HISTORY: Altered mental status COMPARISON: 10/23/2019 FINDINGS: Single view of the chest shows an enlarged but stable cardiomediastinal silhouette. A pace maker seen with its leads in the right and, right ventricle, and coronary sinus. There is no evidence of consolidation, mass, or pleural effusion. Degenerative changes spine. IMPRESSION: Cardiomegaly without evidence of acute cardiopulmonary disease
[2020-08-19 15:24] LABS: #Eosinphils 0.3 thou/uL (0.0-0.7); #Lymphocytes 1.7 thou/uL (1.20-3.40); #Monocytes 0.7 thou/uL (0.11-0.59); #Neutrophils 5.8 thou/uL (1.40-6.50); %Basophils 0.5 % (0.0-1.0); %Eosinophils 3.3 % (0.0-10.0); %Lymphocytes 20.1 % (21.0-51.0); %Neutrophils 68.2 % (42.0-75.0); Hemoglobin 12.1 g/dL (12.0-16.0); Mean Corpuscular HGB CONC 31.2 g/dL (32.0-36.0); Mean Corpuscular Hemoglobin 24.4 pg (27.0-31.0); Mean Corpuscular Volume 78.3 fL (78.0-98.0); Platelet Count 188 thou/uL (130-400); RBC Distribution Width 13.7 % (11.5-14.5); Red Blood Cell (RBC) Count 4.98 mill/uL (4.20-5.40); White Blood Cell (WBC) Count 8.5 thou/uL (4.8-10.8)
[2020-08-19 15:43] LABS: ALT (SGPT) 15 U/L (8-55); AST (SGOT) 14 U/L (5-34); Alkaline Phosphatase 101 U/L (40-110); Anion Gap 15 mmol/L (10-20); BUN (Urea Nitrogen) 18 mg/dL (9.8-20.1); Bilirubin, Total 0.5 mg/dL (0.2-1.2); Calc. Creatinine Clearance 0 mL/min (70-130); Calcium 8.9 mg/dL (7.8-10.44); Carbon Dioxide 23 mmol/L (23-31); Chloride 105 mmol/L (98-107); Estimated GFR-MDRD 57; Globulin 2.6 g/dL (2.4-3.5); Glucose 201 mg/dL (83-110); Potassium 3.6 mmol/L (3.5-5.1); Protein, Total 6.6 g/dL (6.0-8.3); Sodium 139 mmol/L (136-145)
[2020-08-19 15:45] LABS: Bilirubin Negative (Negative); Blood, Urine Negative (Negative); Clarity Clear (Clear); Glucose, Urine (Dipstick) Normal (Negative); Ketone, Urine Negative (Negative); Leukocyte Negative Leu/uL (Negative); Nitrite Negative (Negative); Protein, Urine (Dipstick) 10 mg/dL (Neg-Trace); Specific Gravity, Urine 1.013 (1.002-1.036); Urobilinogen Normal mg/dL (Less than 2); pH, Urine 6.5 (5.0-9.0)
--- NOTE | 2020-08-19 16:36 | CT ---
CT HEAD WITHOUT IV CONTRAST COMPARISON: 12/14/2017 HISTORY: Patient found unresponsive. Recent change in medication. Patient now alert and oriented after admini stration of Narcan. Patient complains of being tired. TECHNIQUE: Axial CT imaging at 5 mm intervals from vertex through skull base without contrast FINDINGS: There is decreased attenuation in the periventricular white matter which is nonspecific but likely re flective of chronic small vessel ischemic changes which have not significantly progressed compared to prior study. There is mild cerebral and cerebellar volume loss. The ventricular system is normal in size, shape, a nd position for the degree of sulcal atrophy. There is no evidence of an acute infarction, hemorrhage, mass effect, or midline shift. Skull base has a normal CT appearance. Visualized paranasal sinuses are clear. Osseous structures appear intact. IMPRESSION: 1. No acute intracranial abnormality demonstrated. 2. Chronic small vessel ischemic changes and cerebral volume loss.
== END 2020-08-19 17:05 ==
LOC: ERS 14:39
DX: R40.0 Somnolence (principal); I49.9 Cardiac arrhythmia, unspecified; E78.5 Hyperlipidemia, unspecified; I10 Essential (primary) hypertension; G30.9 Alzheimer's disease, unspecified; F02.80 Dementia in other diseases classified elsewhere, unspecified severity, without behavioral disturbance, psychotic disturbance, mood disturbance, and anxiety; Z79.82 Long term (current) use of aspirin; Z79.899 Other long term (current) drug therapy
CPT/HCPCS: 36415; 51701; 70450; 71045; 80053; 81003; 84484; 85025; 93005